=== PATIENT | female | born 1995 | race American Indian/Alaskan Native ===

== ENCOUNTER 2017-08-15 13:53 | Emergency (ER) | payer BC, OTHER ==
[2017-08-15 13:54] VITALS: BMI 28.5
[2017-08-15] MEDS ORDERED: Sodium Chloride 0.9% 1,000 ML IV STA (15:24)
--- NOTE | 2017-08-15 15:47 | ED PDOC ---
Arrival/HPI - General Chief Complaint: Abdominal Pain Time Seen by Provider: 08/15/17 15:18 Historian: Patient - History of Present Illness Narrative History of Present Illness (Text): 08/15/17 15:44 21-year-old female presents today with lower abdominal pain that started today. Patient states one month ago she had a D&C for surgical . Patient states at that time she was approximately 8 weeks . Patient states she has not had any bleeding. She denies vaginal discharge. She denies chest pain or shortness of breath. Patient is complaining of chronic back pain as well as a sharp lower abdominal pain greatest in the right lower quadrant of the abdomen. She denies fevers or chills. Patient states she's had some diarrhea today. She denies vomiting. pt denies urinary symptoms. no dizziness or weakness. pt states she was sent from urgent care for further evaluation of abdominal pain. Time/Duration: 1-3 hours Symptom Onset: Sudden Symptom Course: Unchanged Quality: Aching, Stabbing Severity Level: 5 Past Medical History - Provider Review Nursing Documentation Reviewed: Yes - Travel History Have you recently traveled outside [place] w/in the past 3 mons?: No - Tetanus Immunization Tetanus Immunization: Unknown - Renal Hx Kidney Stones: Yes - Psychiatric Hx Psychophysiologic Disorder: No Hx Substance Use: No - Past Surgical History Past Surgical History: No Previous - Anesthesia Hx Anesthesia: No - Suicidal Assessment Feels Threatened In Home Enviroment: No Family/Social History - Physician Review Nursing Documentation Reviewed: Yes Family/Social History: Unknown Family HX Smoking Status: Never Smoked Hx Alcohol Use: No Hx Substance Use: No Allergies/Home Meds Allergies/Adverse Reactions: Allergies No Known Allergies Allergy (Verified 11/03/14 18:24) Review of Systems - Review of Systems Constitutional: absent: Fatigue, Fevers Respiratory: absent: SOB, Cough Cardiovascular: absent: Chest Pain, Palpitations Gastrointestinal: Abdominal Pain, Diarrhea, Nausea. absent: Vomiting Genitourinary Female: absent: Dysuria, Frequency, Hematuria, Vaginal Bleeding, Vaginal Discharge Musculoskeletal: Back Pain. absent: Arthralgias, Neck Pain Skin: absent: Rash, Pruritis Neurological: absent: Headache, Dizziness Psychiatric: absent: Anxiety, Depression, Suicidal Ideation Physical Exam Vital Signs Reviewed: Yes Vital Signs Temp Pulse Resp BP Pulse Ox 08/15/17 17:40 92 H 18 121/77 100 08/15/17 16:13 98.0 F 102 H 18 112/60 100 Temperature: Afebrile Blood Pressure: Normal Pulse: Regular Respiratory Rate: Normal Appearance: Positive for: Well-Appearing, Non-Toxic, Comfortable Pain Distress: None Mental Status: Positive for: Alert and Oriented X 3 - Systems Exam Head: Present: Atraumatic Mouth: Present: Moist Mucous Membranes Neck: Present: Normal Range of Motion Respiratory/Chest: Present: Clear to Auscultation, Good Air Exchange. No: Respiratory Distress, Accessory Muscle Use Cardiovascular: Present: Regular Rate and Rhythm, Normal S1, S2. No: Murmurs Abdomen: Present: Tenderness (diffuse abdominal tenderness, greatest in the lower abdomen), Normal Bowel Sounds. No: Distention, Peritoneal Signs Genitourinary/Pelvic Exam: Present: Normal External Genitalia, Vaginal Discharge (white thin vaginal discharge), Cervical Motion Tendernes (minimal tenderness), Cervical os Closed, Other (chaparoned by gi TAO). No: Vaginal Bleeding, Vaginal Lesions, Adenexal Tenderness, Adenexal Mass Back: Present: Normal Inspection. No: CVA Tenderness, Midline Tenderness Upper Extremity: Present: Normal Inspection Lower Extremity: Present: Normal Inspection Neurological: Present: GCS=15, Speech Normal Skin: Present: Warm, Dry, Normal Color. No: Rashes Psychiatric: Present: Alert, Oriented x 3 Medical Decision Making ED Course and Treatment: 08/15/17 15:49 Patient is nontoxic well appearing with stable vital signs presenting with abdominal pain CBC wnl CMP wnl Lipasewnl Urinalysis wnl Ultrasound: Findings: The uterus measures approximately 5.9 x 3.3 x 4.1 cm. Anteverted. Heterogeneous appearance of the endometrium which measures approximately 1.1 cm inclusive of fluid and debris. The right ovary measures 3.4 x 1.9 x 2.0 cm. The left ovary measures 2.4 x 1.5 x 2.4 cm. Blood flow was demonstrated to both ovaries. Nabothian cyst. No significant pelvic free fluid identified. Impression: Heterogeneous appearance of the endometrium which measures approximately 1.1 cm inclusive of fluid and debris. CAT scan: FINDINGS: Lower thorax: Few pulmonary nodules, up to 0.2 cm. ABDOMEN: Liver: Few low-attenuation lesions with benign imaging features. Gallbladder and bile ducts: No calcified stones. No ductal dilation. Pancreas: No ductal dilation. No mass. Spleen: No splenomegaly. Adrenals: No mass. Kidneys and ureters: No mass. No hydronephrosis. Stomach and bowel: No definite mural thickening. No obstruction. Appendix: Normal caliber. No inflammation. PELVIS: Bladder: Unremarkable. Reproductive: Unremarkable as visualized. ABDOMEN and PELVIS: Intraperitoneal space: Trace free fluid within pelvis. No free air. Bones/joints: No acute fracture. Soft tissues: Tiny umbilical hernia containing fat. Vasculature: Circumaortic LEFT renal vein. Lymph nodes: No pathologically enlarged lymph nodes. IMPRESSION: 1. No definite acute intraabdominal abnormality. 2. Pulmonary nodules, nonspecific. Followup as clinically warranted. 3. Liver lesions. No follow-up is necessary. 4. Incidental/non-acute findings are described above. Patient with a white vaginal discharge and slight tenderness on exam will send gonorrhea and chlamydia cultures and treat with Rocephin and Zithromax in the emergency room and discharged home on doxycycline. Patient reassessment: pt non toxic well-appearing no distress stable vital signs Discussed all results with patient in depth. Patient with a history of D&C one month ago with a heterogeneous endometrium with a 1.1 cm inclusive of fluid and debris. Based on this history: i told the patient to follow-up with the business continuity global director tomorrow to rule out retained products. Patient states her business continuity global director sees people on a walk-in basis and she will go to him tomorrow. I have stressed the importance of this finding with the patient. I have advised the patient that if this is retained products he can lead to severe infection and even . advised patient of pulmonary nodule and need for f/u with PMD. Patient verbalizes understanding of discharge instructions and need for immediate followup. all aspects of this case were discussed the attending of record. Impression: Abdominal pain, vaginal discharge, pulmonary nodule, Motrin every 6 hours as needed for pain Doxycycline 1 tablet twice daily times x 14 days. increase fluids Follow up with the DISASTER RECOVERY MANAGER TOMORROW regarding abnormal ultrasound. Follow up with primary care physician within the next 2 days Return immediately if symptoms worsen persist or if new symptoms develop: High fevers, increasing pain, vomiting, diarrhea or any other concerning symptoms develop Reassessment Condition: Re-examined, Improved - Lab Interpretations Lab Results: 08/15/17 16:20 08/15/17 16:20 Lab Results 08/15/17 16:20: WBC 6.5, RBC 4.58, Hgb 10.9 L, Hct 34.6 L, MCV 75.5 L, MCH 23.8 L, MCHC 31.5, RDW 15.8 H, Plt Count 272, MPV 10.2, Gran % 50.1, Lymph % (Auto) 42.9 H, [place] % (Auto) 4.7, Eos % (Auto) 1.8, Baso % (Auto) 0.5, Gran # 3.27, Lymph # (Auto) 2.8, [place] # (Auto) 0.3, Eos # (Auto) 0.1, Baso # (Auto) 0.03 08/15/17 16:20: Sodium 142, Potassium 3.8, Chloride 105, Carbon Dioxide 27, Anion Gap 13, BUN 13, Creatinine 0.5 L, Est GFR ( Amer) > 60, Est GFR ( Non-Af Amer) > 60, Random Glucose 114 H, Calcium 9.7, Total Bilirubin 0.2, AST 40 H, ALT 39, Alkaline Phosphatase 110, Total Protein 7.8, Albumin 4.2, Globulin 3.6, Albumin/Globulin Ratio 1.1, Lipase 57 08/15/17 16:20: Urine Color Yellow, Urine Appearance Clear, Urine pH 6.0, Ur Specific [place] >= 1.030, Urine Protein Negative, Urine Glucose (UA) Negative, Urine Ketones Negative, Urine Blood Negative, Urine Nitrate Negative, Urine Bilirubin Negative, Urine Urobilinogen 0.2, Ur Leukocyte Esterase Negative - RAD Interpretation Radiology Orders: 08/15/17 15:18 CHEST PORTABLE [RAD] Stat 08/15/17 15:22 TRANSVAGINAL [US] Stat 08/15/17 18:36 ABD & PELVIS IV CONTRAST ONLY [CT] Stat - Medication Orders Current Medication Orders: Azithromycin (Zithromax) 1,000 mg PO STAT STA PRN Reason: Protocol Stop: 08/15/17 22:40 Ceftriaxone Sodium (Rocephin) 250 mg IM STAT STA PRN Reason: Protocol Stop: 08/15/17 22:40 Discontinued Medications Acetaminophen (Tylenol 325mg Tab) 975 mg PO STAT STA Stop: 08/15/17 15:25 Last Admin: 08/15/17 16:45 Dose: 975 mg MAR Pain/Vitals Document 08/15/17 16:45 LATASHA (Rec: 08/15/17 16:46 IMER [id number]) Pain Reassessment Is This A Pain ReAssessment? No Sleep Is patient sleeping during reassessment? No Presence of Pain Presence of Pain Yes Sodium Chloride (Sodium Chloride 0.9%) 1,000 mls @ 999 mls/hr IV .Q1H1M STA Stop: 08/15/17 16:24 Last Admin: 08/15/17 16:20 Dose: 999 mls/hr eMAR Start Stop Document 08/15/17 16:20 LATASHA (Rec: 08/15/17 16:45 IMER [id number]) Intravenous Solution Start Date 08/15/17 Start Time 16:20 End Date 08/15/17 End time 17:20 Total Infusion Time 60 Ketorolac Tromethamine (Toradol) 30 mg IVP STAT STA Stop: 08/15/17 18:39 Last Admin: 08/15/17 18:57 Dose: 30 mg [facility] Pain Assessment Document 08/15/17 18:57 LATASHA (Rec: 08/15/17 18:58 [facility] [id number]) Pain Reassessment Is this a pain reassessment? No Sleep Is patient sleeping during reassessment? No Presence of Pain Presence of Pain Yes IVP Administration Document 08/15/17 18:57 LATASHA (Rec: 08/15/17 18:58 [facility] [id number]) Charges for Administration # of IVP Administrations 1 Disposition/Present on Arrival - Present on Arrival Any Indicators Present on Arrival: No History of DVT/PE: No History of Uncontrolled Diabetes: No Urinary Catheter: No History of Decub. Ulcer: No History Surgical Site Infection Following: None - Disposition Have Diagnosis and Disposition been Completed?: Yes Diagnosis: Abdominal pain, Vaginal discharge, Abnormal ultrasound, Pulmonary nodule Disposition: HOME/ ROUTINE Disposition Time: 22:50 Patient Plan: Discharge Condition: GOOD Discharge Instructions (ExitCare): Acute Abdomen (Belly Pain), Adult (DC), Vaginal Discharge in Adults, Pulmonary Nodule Additional Instructions: Motrin every 6 hours as needed for pain Doxycycline 1 tablet twice daily times x 14 days. increase fluids Follow up with the DISASTER RECOVERY MANAGER TOMORROW regarding abnormal ultrasound. Follow up with primary care physician within the next 2 days Return immediately if symptoms worsen persist or if new symptoms develop: High fevers, increasing pain, vomiting, diarrhea or any other concerning symptoms develop Prescriptions: Doxycycline Hyclate 100 mg PO BID #14 capsule Ibuprofen [Motrin] 600 mg PO Q6H PRN #20 tab PRN Reason: pain/fever reduction Referrals: Charlene Simmons MD [Primary Care Provider] - Follow up with primary Fortino Shaikh MD [Staff Provider] - Follow up with primary Bam Garcia MD [Staff Provider] - Follow up with primary Forms: [facility] ([place]ian), WORK NOTE
[2017-08-15 16:14] VITALS: RESP 18; TEMP 98; O2SAT 100
[2017-08-15 16:37] LABS: BASO # 0.03 K/mm3 (0.0-2.0); BASO % 0.5 % (0.0-3.0); EOS # 0.1 (0.0-0.7); EOS % 1.8 % (1.5-5.0); GRAN # 3.27 (1.4-6.5); GRAN % 50.1 % (50.0-68.0); HEMOGLOBIN 10.9 g/dL (12.0-16.0); LYMPH # 2.8 (1.2-3.4); LYMPH % 42.9 % (22.0-35.0); MEAN CELL VOLUME 75.5 fl (80.0-105.0); MEAN CORPUSCULAR HEMOGLOBIN 23.8 pg (25.0-35.0); MEAN CORPUSCULAR HGB CONC 31.5 g/dl (31.0-37.0); MEAN PLATELET VOLUME 10.2 fl (7.0-11.0); MONO # 0.3 (0.1-0.6); MONO % 4.7 % (1.0-6.0); RBC 4.58 10^6/uL (3.5-6.1); RED CELL DISTRIBUTION WIDTH 15.8 % (11.5-14.5); URINE BILIRUBIN NEGATIVE (NEGATIVE); URINE BLOOD NEGATIVE (NEGATIVE); URINE GLUCOSE (UA) NEGATIVE (NEGATIVE); URINE LEUKOCYTE ESTERASE NEGATIVE Leu/uL (NEGATIVE); URINE NITRATE NEGATIVE (NEGATIVE); URINE PROTEIN NEGATIVE mg/dL (<30 mg/dL); URINE UROBILINOGEN 0.2 E.U./dL (<1 E.U./dL); WHITE BLOOD COUNT 6.5 10^3/ul (4.5-11.0)
[2017-08-15 16:39] LABS: URINE APPEARANCE CLEAR (CLEAR); URINE COLOR YELLOW (YELLOW)
[2017-08-15 16:46] LABS: ALB/GLOB RATIO 1.1 (1.1-1.8); ALBUMIN 4.2 g/dL (3.0-4.8); ALT/SGPT 39 U/L (7-56); AST/SGOT 40 U/L (14-36); BLOOD UREA NITROGEN 13 mg/dL (7-21); CALCIUM 9.7 mg/dL (8.4-10.5); GFR AFRICAN-AMERICAN > 60; GFR NON-AFRICAN AMERICAN > 60; LIPASE 57 U/L (23-300)
--- NOTE | 2017-08-15 18:10 | US ---
Indication: abd pain. hx of elective surgical 1wk ago Comparison: None available Technique: Transvaginal pelvic ultrasound. Findings: The uterus measures approximately 5.9 x 3.3 x 4.1 cm. Anteverted. Heterogeneous appearance of the endometrium which measures approximately 1.1 cm inclusive of fluid and debris. The right ovary measures 3.4 x 1.9 x 2.0 cm. The left ovary measures 2.4 x 1.5 x 2.4 cm. Blood flow was demonstrated to both ovaries. Nabothian cyst. No significant pelvic free fluid identified. Impression: Heterogeneous appearance of the endometrium which measures approximately 1.1 cm inclusive of fluid and debris.
[2017-08-15 19:12] VITALS: BP 121/77; PULSE 92
[2017-08-15] MEDS ORDERED: Iohexol 350 MG/100 ML VIAL ONE (19:23)
--- NOTE | 2017-08-15 20:44 | CT ---
EXAM: CT Abdomen and Pelvis With Intravenous Contrast CLINICAL HISTORY: 21 years old, female; Pain; Abdominal pain TECHNIQUE: Axial computed tomography images of the abdomen and pelvis with intravenous contrast. All CT scans at this facility use one or more dose reduction techniques, viz.: automated exposure control; ma/kV adjustment per patient size (including targeted exams where dose is matched to indication; i.e. head); or iterative reconstruction technique. Coronal and sagittal reformatted images were created and reviewed. CONTRAST: 95 mL of OMNI 350 administered intravenously. COMPARISON: US - TRANSVAGINAL 2017-08-15 17:05 FINDINGS: Lower thorax: Few pulmonary nodules, up to 0.2 cm. ABDOMEN: Liver: Few low-attenuation lesions with benign imaging features. Gallbladder and bile ducts: No calcified stones. No ductal dilation. Pancreas: No ductal dilation. No mass. Spleen: No splenomegaly. Adrenals: No mass. Kidneys and ureters: No mass. No hydronephrosis. Stomach and bowel: No definite mural thickening. No obstruction. Appendix: Normal caliber. No inflammation. PELVIS: Bladder: Unremarkable. Reproductive: Unremarkable as visualized. ABDOMEN and PELVIS: Intraperitoneal space: Trace free fluid within pelvis. No free air. Bones/joints: No acute fracture. Soft tissues: Tiny umbilical hernia containing fat. Vasculature: Circumaortic LEFT renal vein. Lymph nodes: No pathologically enlarged lymph nodes. IMPRESSION: 1. No definite acute intraabdominal abnormality. 2. Pulmonary nodules, nonspecific. Followup as clinically warranted. 3. Liver lesions. No follow-up is necessary. 4. Incidental/non-acute findings are described above.
[2017-08-15] MEDS ORDERED: cefTRIAXone (Rocephin) 250 mg Inj IM STA (22:39)
[2017-08-15] MEDS ORDERED: Lidocaine 1% Inj (20ml) ONE (22:54)
--- NOTE | 2017-08-16 08:39 | RAD ---
HISTORY: abd pain COMPARISON: No prior. FINDINGS: LUNGS: No active pulmonary disease. PLEURA: No significant pleural effusion identified, no pneumothorax apparent. CARDIOVASCULAR: Cardiac size appears mildly prominent there is likely it least in part technically magnified given frontal technique. OSSEOUS STRUCTURES: No significant abnormalities. VISUALIZED UPPER ABDOMEN: Normal. OTHER FINDINGS: None. IMPRESSION: No acute pulmonary disease appreciated bilaterally. No pulmonary vascular derangement. Cardiac silhouette limited evaluation given frontal technique.
== END 2017-08-15 23:18 | disposition home or self-care (01) ==
LOC: ED 13:53
DX: N89.8 Other specified noninflammatory disorders of vagina (principal); R10.30 Lower abdominal pain, unspecified; R91.1 Solitary pulmonary nodule; R93.8 Abnormal findings on diagnostic imaging of other specified body structures
CPT/HCPCS: 71045; 74177; 76830; 80053; 81003; 83690; 85025; 87491; 87591; 96361; 96372; 96374; 99284; J0696; J1885; J7040; Q9967

== ENCOUNTER 2018-04-29 10:52 | Emergency (ER) | payer BC, OTHER ==
[2018-04-29 11:08] VITALS: RESP 18; TEMP 97.9; O2SAT 100; BMI 35.2
--- NOTE | 2018-04-29 11:18 | ED PDOC ---
Arrival/HPI - General Time Seen by Provider: 04/29/18 10:59 Historian: Patient - History of Present Illness Narrative History of Present Illness (Text): 04/29/18 11:10 22 year old female, with no significant past medical history, presents to the Emergency Department complaining of right wrist swelling and discomfort for past 2 days. Patient believes sustaining injury from lifting a stroller Saturday. Patient reports no immediate discomfort but states the swelling progressively worsened today at work, prompting her to present to the ED for medical evaluation. Patient denies any other somatic complaints. Patient denies any fevers, chills, nausea, vomiting, diarrhea, abdominal pain, chest pain, shortness of breath, cough, headache, dizziness, neck pain, back pain, or any other complaints. Time/Duration: < week Symptom Onset: Gradual Symptom Course: Unchanged Activities at Onset: Light Context: Home Past Medical History - Provider Review Nursing Documentation Reviewed: Yes - Tetanus Immunization Tetanus Immunization: Unknown - Renal Hx Kidney Stones: Yes - Psychiatric Hx Psychophysiologic Disorder: No Hx Substance Use: No - Past Surgical History Past Surgical History: No Previous - Anesthesia Hx Anesthesia: No - Suicidal Assessment Feels Threatened In Home Enviroment: No Family/Social History - Physician Review Nursing Documentation Reviewed: Yes Family/Social History: Unknown Family HX Smoking Status: Never Smoked Hx Alcohol Use: No Hx Substance Use: No Allergies/Home Meds Allergies/Adverse Reactions: Allergies No Known Allergies Allergy (Verified 04/29/18 11:10) Home Medications: Home Meds Medication Instructions Recorded Confirmed metroNIDAZOLE [Flagyl] 0 mg PO 04/29/18 Review of Systems - Physician Review All systems were reviewed & negative as marked: Yes - Review of Systems Constitutional: absent: Fevers Respiratory: absent: SOB, Cough Cardiovascular: absent: Chest Pain Gastrointestinal: absent: Abdominal Pain, Diarrhea, Nausea, Vomiting Musculoskeletal: Other (right wrist swelling and discomfort ). absent: Back Pain, Neck Pain Neurological: absent: Headache, Dizziness Physical Exam Vital Signs Reviewed: Yes Temperature: Afebrile Blood Pressure: Normal Pulse: Regular Respiratory Rate: Normal Appearance: Positive for: Well-Appearing, Non-Toxic, Comfortable Pain Distress: None Mental Status: Positive for: Alert and Oriented X 3 - Systems Exam Head: Present: Atraumatic, Normocephalic Pupils: Present: PERRL Extroacular Muscles: Present: EOMI Conjunctiva: Present: Normal Neck: Present: Normal Range of Motion Respiratory/Chest: Present: Clear to Auscultation, Good Air Exchange. No: Respiratory Distress, Accessory Muscle Use Cardiovascular: Present: Regular Rate and Rhythm, Normal S1, S2. No: Murmurs Abdomen: No: Tenderness, Distention, Peritoneal Signs Back: Present: Normal Inspection Upper Extremity: Present: Normal ROM, Tenderness (mild tenderness to right wrist ), Neurovascularly Intact. No: Cyanosis, Edema, Deformity Lower Extremity: Present: Normal Inspection. No: Edema Neurological: Present: GCS=15, CN II-XII Intact, Speech Normal Skin: Present: Warm, Dry, Normal Color. No: Rashes Psychiatric: Present: Alert, Oriented x 3, Normal Insight, Normal Concentration Medical Decision Making ED Course and Treatment: 04/29/18 11:15 Impression: 22 year old female presents to the Emergency Department complaining of right wrist swelling and discomfort. Plan: -- Tylenol -- X-ray of right wrist -- Reassess and disposition Prior Visits: Notes and results from previous visits were reviewed. Progress Notes: 04/29/18 16:50 xr neg given wrist splint. advise outpt fu. - RAD Interpretation Radiology Orders: 04/29/18 11:06 WRIST, RIGHT 3 VIEWS [RAD] Stat - Medication Orders Current Medication Orders: Acetaminophen (Tylenol 325mg Tab) 975 mg PO STAT STA Stop: 04/29/18 11:07 - Scribe Statement The provider has reviewed the documentation as recorded by the Scribe Alex Lozano. All medical record entries made by the Scribe were at my direction and personally dictated by me. I have reviewed the chart and agree that the record accurately reflects my personal performance of the history, physical exam, medical decision making, and the department course for this patient. I have also personally directed, reviewed, and agree with the discharge instructions and disposition. Disposition/Present on Arrival - Present on Arrival Any Indicators Present on Arrival: No History of DVT/PE: No History of Uncontrolled Diabetes: No Urinary Catheter: No History Surgical Site Infection Following: None - Disposition Have Diagnosis and Disposition been Completed?: Yes Diagnosis: Wrist pain, Wrist sprain Disposition: HOME/ ROUTINE Disposition Time: 12:00 Condition: STABLE Discharge Instructions (ExitCare): Wrist Sprain (DC), Common Wrist Injuries (DC) Additional Instructions: follow up with specialist. return to er with worsening symptoms or concerns. Prescriptions: RX: Naproxen 500 mg PO BID PRN #14 tablet PRN Reason: Pain, Mild (1-3) Referrals: Damian Blandon, [Staff Provider] - Follow up with primary Forms: [facility] ([place]), WORK NOTE
[2018-04-29 12:26] VITALS: BP 123/70; PULSE 76
--- NOTE | 2018-04-29 14:34 | RAD ---
Date of service: 04/29/2018 PROCEDURE: Right Wrist Radiographs. HISTORY: trauma COMPARISON: None. FINDINGS: BONES: Normal. No fracture. JOINTS: Normal. No dislocation. SOFT TISSUES: Normal. OTHER FINDINGS: None. IMPRESSION: Normal right wrist radiographs.
== END 2018-04-29 12:30 | disposition home or self-care (01) ==
LOC: ED 10:52
DX: S63.501A Unspecified sprain of right wrist, initial encounter (principal); X58.XXXA Exposure to other specified factors, initial encounter; Y92.9 Unspecified place or not applicable; M25.531 Pain in right wrist

== ENCOUNTER 2018-05-12 09:18 | Emergency (ER) | payer BC, OTHER ==
[2018-05-12 09:36] VITALS: O2SAT 100; BMI 36.3
--- NOTE | 2018-05-12 09:52 | ED PDOC ---
Arrival/HPI - General Chief Complaint: Finger,Hand,&Wrist Time Seen by Provider: 05/12/18 09:19 Historian: Patient - History of Present Illness Narrative History of Present Illness (Text): 05/12/18 09:56 22-year-old female presents today with right wrist pain that has been ongoing for over a week. Patient states she was seen in the emergency room at the end of March and had x-rays of the wrist and was told nothing was wrong. Patient states the pain started after lifting her child stroller. Patient states the pain is located to the ulnar aspect of the wrist. She denies numbness weakness or tingling in the extremity. She is complaining of pain with range of motion of the wrist. Patient states she did not follow-up with an orthopedist. Patient states she is also having some low back pain which she has had for a very long time and states that she also has some pain with urination. She states is not a burning sensation. She denies any vaginal pain or vaginal discharge. She denies chest pain or shortness of breath. Denies fevers or chills. No nausea or vomiting. No other complaints. Past Medical History - Provider Review Nursing Documentation Reviewed: Yes - Travel History Have you recently traveled outside [place] w/in the past 3 mons?: No - Infectious Disease Hx of Infectious Diseases: None - Tetanus Immunization Tetanus Immunization: Unknown - Renal Hx Kidney Stones: Yes - Hematological/Oncological Hx Blood Disorders: No - Psychiatric Hx Psychophysiologic Disorder: No Hx Substance Use: No - Past Surgical History Past Surgical History: No Previous - Surgical History Hx Section: Yes (x1) - Anesthesia Hx Anesthesia: Yes Hx Anesthesia Reactions: No Hx Malignant Hyperthermia: No - Suicidal Assessment Feels Threatened In Home Enviroment: No Family/Social History - Physician Review Nursing Documentation Reviewed: Yes Family/Social History: Unknown Family HX Smoking Status: Never Smoked Hx Alcohol Use: No Hx Substance Use: No Allergies/Home Meds Allergies/Adverse Reactions: Allergies No Known Allergies Allergy (Verified 04/29/18 11:10) Review of Systems - Review of Systems Constitutional: absent: Fatigue, Fevers Respiratory: absent: SOB, Cough Cardiovascular: absent: Chest Pain, Palpitations Gastrointestinal: absent: Abdominal Pain, Nausea, Vomiting Genitourinary Female: absent: Dysuria, Frequency, Hematuria, Vaginal Bleeding, Vaginal Discharge Musculoskeletal: Arthralgias (right wrist pain), Back Pain. absent: Neck Pain Skin: absent: Rash, Pruritis Neurological: absent: Headache, Dizziness Psychiatric: absent: Anxiety, Depression Physical Exam Vital Signs Reviewed: Yes Vital Signs Temp Pulse Resp BP Pulse Ox 05/12/18 09:18 99.3 F 65 16 108/62 100 Temperature: Afebrile Blood Pressure: Normal Pulse: Regular Respiratory Rate: Normal Appearance: Positive for: Well-Appearing, Non-Toxic, Comfortable Pain Distress: None Mental Status: Positive for: Alert and Oriented X 3 - Systems Exam Head: Present: Atraumatic Mouth: Present: Moist Mucous Membranes Neck: Present: Normal Range of Motion Respiratory/Chest: Present: Clear to Auscultation Cardiovascular: Present: Regular Rate and Rhythm, Normal S1, S2. No: Murmurs Abdomen: No: Tenderness, Distention, Rebound, Guarding Back: Present: Normal Inspection. No: CVA Tenderness, Midline Tenderness, Paraspinal Tenderness Upper Extremity: Present: Normal Inspection, Normal ROM, NORMAL PULSES, Neurovascularly Intact, Capillary Refill < 2s. No: Tenderness, Swelling, Erythema Neurological: Present: GCS=15 Skin: Present: Warm, Dry, Normal Color. No: Rashes Psychiatric: Present: Alert, Oriented x 3 Medical Decision Making ED Course and Treatment: 05/12/18 09:58 Patient is nontoxic well-appearing in no distress stable vital signs. Complaining of continued right wrist pain despite negative x-ray. UA: wnl X-rays of the lumbar spine: No fracture Patient is full range of motion of the wrist. No tenderness. No edema nor erythema no ecchymosis. Patient states she has a wrist splint at home which she was advised to use. She is advised follow-up with the orthopedist within the next 2 days. I discussed all results in depth with the patient advised follow-up with primary care physician and orthopedist within the next 2 days. Advised using wrist splint. I've advised Motrin every 6 hours as needed for pain and return immediately if symptoms worsen persist or if new concerning symptoms develop Patient verbalizes understanding of discharge instructions and need for immediate followup. all aspects of this case were discussed the attending of record. Impression: Wrist pain, back pain Motrin every 6 hours as needed for pain Followup with the orthopedist within the next 2 days Followup with primary care physician within the next 2 days Return if symptoms worsen persist or if new symptoms develop - RAD Interpretation Radiology Orders: 05/12/18 09:48 LS SPINE WITH OBL > 18 YRS OLD [RAD] Stat Disposition/Present on Arrival - Present on Arrival Any Indicators Present on Arrival: No History of DVT/PE: No History of Uncontrolled Diabetes: No Urinary Catheter: No History of Decub. Ulcer: No History Surgical Site Infection Following: None - Disposition Have Diagnosis and Disposition been Completed?: Yes Diagnosis: Wrist pain, Back pain Disposition: HOME/ ROUTINE Disposition Time: 09:48 Patient Plan: Discharge Patient Problems: Current Active Problems Problem Status Onset Back pain Acute Wrist pain Acute Condition: GOOD Discharge Instructions (ExitCare): Low Back Pain in Adults Additional Instructions: Motrin every 6 hours as needed for pain Followup with the orthopedist within the next 2 days Followup with primary care physician within the next 2 days Return if symptoms worsen persist or if new symptoms develop Prescriptions: Ibuprofen [Motrin] 600 mg PO Q6H PRN #20 tab PRN Reason: pain/fever reduction Referrals: Mary Chang MD [Staff Provider] - Follow up with primary Byron Call MD [Staff Provider] - Follow up with primary Melisa Regalado MD [Medical Doctor] - Follow up with primary [facility] [facility] [Outside] - Follow up with primary Forms: [employer] ([place]), WORK NOTE
[2018-05-12 10:01] LABS: URINE BILIRUBIN NEGATIVE (NEGATIVE); URINE BLOOD NEGATIVE (NEGATIVE); URINE GLUCOSE (UA) NEGATIVE (NEGATIVE); URINE LEUKOCYTE ESTERASE NEGATIVE Leu/uL (NEGATIVE); URINE PROTEIN NEGATIVE mg/dL (<30 mg/dL); URINE UROBILINOGEN 0.2 E.U./dL (<1 E.U./dL)
[2018-05-12 10:03] LABS: URINE APPEARANCE CLEAR (CLEAR); URINE COLOR YELLOW (YELLOW)
--- NOTE | 2018-05-12 11:05 | RAD ---
Date of service: 05/12/2018 PROCEDURE: Radiographs of the Lumbar Spine. HISTORY: back pain COMPARISON: No prior. FINDINGS: BONES: Normal alignment. No listhesis. No fracture. DISC SPACES: Unremarkable. OTHER FINDINGS: None. IMPRESSION: Unremarkable radiographs of the lumbar spine.
[2018-05-12 13:04] VITALS: BP 110/76; PULSE 72; RESP 15; TEMP 97.8
== END 2018-05-12 10:40 | disposition home or self-care (01) ==
LOC: ED 09:18
DX: M25.531 Pain in right wrist (principal); M54.5 Low back pain; Z87.442 Personal history of urinary calculi
CPT/HCPCS: 72110; 81003; 96372; 99284; J1885